=== PATIENT | female | born 1975 | race Caucasian/White ===

== ENCOUNTER 2017-01-08 07:51 | Emergency (ER) | payer MEDICAID ==
[~2017-01-08] VITALS: Ht 165.1 cm; Wt 80.7 kg
[~2017-01-08 07:51] MED LIST: ALKA SELTZER
[2017-01-08 07:54] VITALS: BP 143/75
--- NOTE | 2017-01-08 07:59 | NUR ---
Patient ambulated to bed 06.
--- NOTE | 2017-01-08 08:00 | NUR ---
41/F BIB FAMILY C/O RIGHT SIDED JAW PAIN, SORE THROAT, BILAT EARACHE X4 DAYS. PT DENIES N/V/D; SKIN IS PINK/WARM/DRY; AAOX4 WITH EVEN AND STEADY GAIT; LUNGS CLEAR BL; HR EVEN AND REGULAR; PT DENIES ANY FEVER, CP, SOB, OR COUGH AT THIS TIME; PATIENT STATES PAIN OF 10/10 AT THIS TIME; VSS; PATIENT POSITIONED FOR COMFORT; HOB ELEVATED; BEDRAILS UP X2; BED DOWN. ER MD MADE AWARE OF PT STATUS.
[2017-01-08] MEDS ORDERED: ACETAMIN/CODEINE 120/12MG-5ML 5 ML UDC PO ONE (08:10)
[2017-01-08] MEDS ORDERED: DEXAMETHASONE 4 MG/ML VIAL PO ONE (08:35)
--- NOTE | 2017-01-08 09:00 | NUR ---
Patient appears to be resting comfortably in bed. Vital Signs within normal limits. Respirations even and unlabored.WILL CONTINUE TO MONITOR
[2017-01-08] MEDS ORDERED: NACL 0.9% 1,000 ML IV ONE (09:40)
[2017-01-08 09:56] LABS: HEMATOCRIT 44.5 % (36-48); HEMOGLOBIN 14.9 g/dL (12.0-16.0); MEAN CORPUSCULAR HEMOGLOBIN 28 pg (27-31); MEAN CORPUSCULAR HGB CONC 33 g/dL (33-37); MEAN CORPUSCULAR VOLUME 83 fL (80-94); PLATELET COUNT (AUTO) 289 K/uL (140-450); RED BLOOD CELL COUNT(AUTO) 5.35 MIL/uL (4.20-5.40); RED CELL DISTRIBUTION WIDTH 13.2 % (11.6-13.7); WHITE BLOOD COUNT (AUTO) 14.9 K/uL (4.8-10.8)
--- NOTE | 2017-01-08 09:56 | NUR ---
Noah taylor in ED - 01/08/17 at 0956 by MED1 PT TAKEN TO CT VIA W/C ACCOMPANIED BY CRANE LADLE PERSON
--- NOTE | 2017-01-08 09:56 | NUR ---
Patient going to CT via wheelchair per tech.
--- NOTE | 2017-01-08 10:18 | NUR ---
Patient back from CT via wheelchair per tech.
[2017-01-08 10:25] LABS: ALBUMIN 3.2 g/dL (3.4-5.0); ANION GAP 13.2 (8-16); CALCIUM 8.8 mg/dL (8.5-10.1); CARBON DIOXIDE 26.9 mmol/L (21-32); CREATININE 0.8 mg/dL (0.6-1.3); POTASSIUM 4.1 mmol/L (3.5-5.1); TOTAL PROTEIN, SERUM 7.8 g/dL (6.4-8.2)
[2017-01-08 10:33] LABS: BAND % (MANUAL) 7 % (0-8); LYMPHOCYTES % (MANUAL) 8 % (20-46); MONOCYTES % (MANUAL) 3 % (5-12); NEUTROPHILS % (MANUAL) 82 (43-65); PLATELET ESTIMATE ADEQUATE
[2017-01-08] MEDS ORDERED: CLINDAMYCIN 900 MG in DEXTROSE 5% 100 ML IV ONE (10:45)
[2017-01-08] MEDS ORDERED: CLINDAMYCIN 900 MG/6 ML VIAL IV ONE ×2 (11:10→11:31)
--- NOTE | 2017-01-08 13:07 | NUR ---
GAVE REPORT TO GRADY MAURICIO, [facility]
[2017-01-08 13:15] VITALS: BP 115/72
--- NOTE | 2017-01-08 13:15 | NUR ---
[facility] at bedside preparing patient for transfer.
--- NOTE | 2017-01-08 13:15 | NUR ---
Patient to be transferred to [facility]. Is being transferred due to HIGH LEVEL. Receiving facility has accepting physician and available space. ER physician has signed transfer form. Patient or responsible constitution party has agreed to transfer and signed form. Patient belongings inventoried and will be sent with patient. Copy of nursing notes, lab reports, EKG, Physicians Orders and X-rays to be sent with patient. Report called to GRADY ONEIL at receiving facility. ambulance service has been called for transfer.
--- NOTE | 2017-01-09 19:43 | NUR ---
ESTRELLITA FROM LAB CALLED TO REPORT PT'S THROAT CULTURE (SEE CULTURE RESULT) RESULTS DONE 01/08/17 AT 0845. CALLED PT'S HOME PHONE NUMBER AND LEAVE MESSAGE TO CALL BACK TO DISCUSS THE RESULTS. I TRIED TO CALL NEXT OF [facility] NUMBER BUT NO ANSWER. AWAITING FOR PT TO CALL BACK.
--- NOTE | 2017-01-10 09:48 | NUR ---
LEFT ANOTHER MSG.
--- NOTE | 2017-01-10 10:59 | NUR ---
PT RETURNED CALL AND THROAT CULTURE RESULTS RELAYED TO PT. PER DR. TOBAR, COURSE OF TREATMENT PT RECEIVED WHILE INPATIENT AT [facility] WAS APPROPRIATE AND NO CHANGES NEEDED. PT ADVISED OF THIS AND AGREEABLE WITH Rebeca.
== END 2017-01-08 13:15 | disposition short-term general hospital (02) ==
LOC: MED 07:51
DX: J02.8 Acute pharyngitis due to other specified organisms (principal); R25.2 Cramp and spasm; M54.2 Cervicalgia
CPT/HCPCS: 36415; 70491; 80053; 81002; 81025; 85025; 85651; 86140; 87081; 87804; 96361; 96365; 99285; J1100; J3490; J7030; Q9967